=== PATIENT | male | born 1960 | race Caucasian/White ===

== ENCOUNTER 2018-04-06 12:52 | Observation (INO) ==
--- NOTE | 2018-04-06 13:25 | Emergency Department Note ---
Disposition Clinical Impression: Syncope Qualifiers: Syncope type: unspecified Qualified Code(s): R55 - Syncope and collapse Disposition: Admitted As Inpatient Condition: Fair [facility]errals: [facility]Primary Care Provider[facility] - Forms: ED Satisfaction Letter Time of Disposition: 16:28 Altered Mental Status HPI - General Chief Complaint: ED Altered Mental Status Stated Complaint: Passing out Time Seen by Provider: 04/06/18 13:01 Source: patient, EMS Mode of arrival: EMS Limitations: no limitations Nursing Notes Reviewed: Yes Vital Signs Reviewed: Yes - History of Present Illness HPI Narrative: EMS reports that the patient developed confusion and altered mental status earlier. The patient states that he developed a sharp pain in the back of his head was down into his body. This began last p.m. His girlfriend stated that his speech was somewhat slurred's. He also states he has been having some intermittent chest pain since last night. MD complaint: altered mental status Onset (ago): hour(s) (16 hours) Timing confirmed by: caregiver Consistency of Symptoms: waxing and waning Associated symptoms: Reports: headaches - Related Data Home Medications Medication Instructions Recorded Confirmed Diltiazem [Cardizem] 30 mg PO DAILY 01/29/17 04/03/18 Gabapentin [Neurontin] 1,000 mg PO TID 01/29/17 04/03/18 Omeprazole [PriLOSEC] 20 mg PO BIDAC 01/29/17 04/03/18 Aspirin [Adult Aspirin Regimen] 81 mg PO DAILY 04/03/18 04/03/18 Lisinopril [Zestril] 20 mg PO DAILY 04/03/18 04/03/18 Simvastatin [Zocor] 20 mg PO HS 04/03/18 04/03/18 Tamsulosin HCl [Flomax] 0.4 mg PO DAILY 04/03/18 04/03/18 Previous Rx's Medication Instructions Recorded Cyclobenzaprine [Flexeril] 10 mg PO TID #21 tablet 01/29/17 Oxybutynin [Ditropan] 5 mg PO BID 5 Days #10 tablet 04/03/18 Allergies Allergy/AdvReac Type Severity Reaction Status Date / Time No Known Allergies Allergy Verified 03/23/18 10:22 All systems ED: reviewed and negative except as stated. Constitutional: Denies: fever, chills, weakness, weight change Eyes: Denies: eye pain, eye discharge, vision change ENT ED: Denies: ear pain, throat pain, dental pain, hearing loss, epistaxis, congestion, dysphagia Cardiovascular: Reports: chest pain. Denies: palpitations, dyspnea on exertion , edema, syncope Respiratory: Denies: cough, dyspnea, wheezes, hemoptysis, stridor Gastrointestinal: Denies: abdominal pain, nausea, vomiting, diarrhea, constipation, hematemesis, melena, hematochezia Genitourinary: Denies: urgency, dysuria, frequency, hematuria Musculoskeletal: Denies: back pain, neck pain, arthralgia, myalgia Integumentary: Denies: rash, abrasion, lesions Neurological: Reports: headache. Denies: weakness, numbness, paresthesias, confusion, abnormal gait, vertigo Psychiatric: Denies: anxiety, depression, suicidal thoughts, homicidal thoughts , auditory hallucinations, visual hallucinations Endocrine: Denies: fatigue Hematological/Lymphatic: Denies: easy bleeding, easy bruising Allergic/Immunologic: Denies: facial swelling, urticaria Past Medical History - Past Medical History Medical history: Reports: arthritis, diabetes, GERD, hyperlipidemia, hypertension Psychiatric history: Reports: PTSD - Social History Smoking Status: Current every day smoker Smokeless Tobacco Status: No Alcohol use: Reports: none Drug use: Reports: none Physical Exam - General Limitations: no limitations General appearance: alert, in no apparent distress - Head Head exam: atraumatic, normocephalic, normal inspection - Eye Eye exam: Present: normal appearance, PERRL, EOMI - ENT ENT exam: normal exam, normal oropharynx, mucous membranes moist - Neck Neck exam: Present: normal inspection, full ROM, trachea midline - Chest Chest inspection: Present: normal inspection, symmetric chest wall rise - Respiratory Respiratory exam: Present: normal lung sounds bilaterally - Cardiovascular Cardiovascular exam: Present: regular rate, normal rhythm, normal heart sounds - Abdominal Exam Abdominal exam: Present: soft, Non-Tender. Absent: tenderness, distention, guarding, rebound, rigidity - Extremities Exam Extremities exam: Present: normal inspection, full ROM. Absent: tenderness, pedal edema - Expanded Lower Extremity Exam Neurovascular/Tendon exam: Absent: motor deficit, sensory deficit, tendon deficit - Back Exam Back exam: Present: normal inspection, full ROM. Absent: tenderness - Neurological Exam Neurological exam: Present: alert, oriented X3 - Psychiatric Psychiatric exam: Present: normal affect, normal mood - Skin Skin exam: Present: warm, dry, intact, normal color Course - Reevaluation(s) Reevaluation #1: 58-year-old who suffered a syncopal episode prior to arrival. Family states he has been somewhat confused today. CT negative the patient will be admitted for further evaluation and treatment. Time: 16:26 - Consultations Consultation #1: Discussed with , admit. Time: 16:27 Vital Signs Temperature 97.7 F 04/06/18 12:59 Pulse Rate 76 04/06/18 12:59 Respiratory Rate 16 04/06/18 12:59 Blood Pressure 112/69 04/06/18 12:59 O2 Sat by Pulse Oximetry 97 04/06/18 12:59 Temperature 97.7 F 04/06/18 12:59 Pulse Rate 66 04/06/18 16:11 Respiratory Rate 18 04/06/18 16:11 Blood Pressure 114/75 04/06/18 16:11 O2 Sat by Pulse Oximetry 96 04/06/18 16:11 Oxygen Delivery Oxygen Delivery Room Air Altered Mental Status - Lab Data Lab results reviewed: Yes I reviewed the patient's lab results. Result diagrams: 04/06/18 13:42 04/06/18 13:42 Lab Results 04/06/18 04/06/18 04/06/18 Range/Units 13:05 13:42 13:42 WBC 5.2 (4.3-11.1) K/mcL RBC 3.31 L (4.19-5.50) M/mcL Hgb 11.0 L (12.9-16.9) g/dL Hct 32.4 L (37.5-50.1) % MCV 97.9 (83.0-100.0) fL MCH 33.2 (28.0-33.3) pg MCHC 34.0 (31.6-35.5) g/dL RDW 11.9 (11.5-14.5) % Plt Count 175 (140-400) K/mcL MPV 9.7 (9.4-12.4) fL Immature Gran % 0.2 (0-4) % Seg Neutrophils % 45.8 % Lymphocytes % 41.7 % Monocytes % 7.2 % Eosinophils % 4.7 % Basophils % 0.4 % Neutrophils # 2.4 (1.6-8.9) K/mcL Lymphocytes # 2.2 (0.6-4.6) K/mcL Monocytes # 0.4 (0.0-1.3) K/mcL Eosinophils # 0.2 (0.0-0.6) K/mcL Basophils # 0.0 (0.0-0.2) K/mcL PT 12.1 (9.4-12.1) Seconds INR 1.1 APTT 28.9 (26.0-36.0) Seconds Sodium (136-145) mEq/L Potassium (3.5-5.1) mEq/L Chloride (98-107) mEq/L Carbon Dioxide (23-29) mEq/L BUN (6-20) mg/dL Creatinine (0.70-1.30) mg/dL Est GFR ( Amer) (> 60) Est GFR (Non-Af Amer) (> 60) BUN/Creatinine Ratio (6-26) Glucose (70-105) mg/dL POC Glucose 93 (70-99) mg/dL Calculated Osmolality (280-300) Calcium (8.6-10.3) mg/dL Total Bilirubin (0.3-1.0) mg/dL Direct Bilirubin (0.0-0.2) mg/dL Indirect Bilirubin (0.0-1.2) mg/dL AST (13-39) Units/L ALT (7-52) Units/L Alkaline Phosphatase (34-104) Units/L Ammonia (16-53) mcmol/L Troponin I (< 0.04) ng/mL Serum Total Protein (6.4-8.9) g/dL Albumin (3.5-5.7) g/dL Globulin (2.4-3.5) g/dL Albumin/Globulin Ratio (1.1-2.2) Urine Color (Yellow) Urine Clarity (Clear) Urine pH (5.0-8.0) pH Units Ur Specific [place] (1.010-1.025) Urine Protein (Neg-Trace) mg/dL Urine Glucose (UA) (Normal) mg/dL Urine Ketones (Negative) mg/dL Urine Blood (Negative) Urine Nitrite (Negative) Urine Bilirubin (Negative) Urine Urobilinogen (Normal) mg/dL Ur Leukocyte Esterase (Negative) Ur Culture Indicated? (NO) Urine Opiates Screen (Bokymi=889) ng/mL Ur Barbiturates Screen (Eferzz=880) ng/mL Ur Phencyclidine Scrn (Cutoff=25) ng/mL Ur Amphetamines Screen (Ebwksx=5002) ng/mL U Benzodiazepines Scrn (Grmumt=015) ng/mL Urine Cocaine Screen (Cutoff= 300) ng/mL U Marijuana (THC) Screen (Cutoff = 50) ng/mL Ethyl Alcohol (Less than 10) mg/dL Specimen Rejected 04/06/18 04/06/18 04/06/18 Range/Units 13:42 13:42 14:24 WBC (4.3-11.1) K/mcL RBC (4.19-5.50) M/mcL Hgb (12.9-16.9) g/dL Hct (37.5-50.1) % MCV (83.0-100.0) fL MCH (28.0-33.3) pg MCHC (31.6-35.5) g/dL RDW (11.5-14.5) % Plt Count (140-400) K/mcL MPV (9.4-12.4) fL Immature Gran % (0-4) % Seg Neutrophils % % Lymphocytes % % Monocytes % % Eosinophils % % Basophils % % Neutrophils # (1.6-8.9) K/mcL Lymphocytes # (0.6-4.6) K/mcL Monocytes # (0.0-1.3) K/mcL Eosinophils # (0.0-0.6) K/mcL Basophils # (0.0-0.2) K/mcL PT (9.4-12.1) Seconds INR APTT (26.0-36.0) Seconds Sodium 137 (136-145) mEq/L Potassium 4.4 (3.5-5.1) mEq/L Chloride 109 H (98-107) mEq/L Carbon Dioxide 24 (23-29) mEq/L BUN 26 H (6-20) mg/dL Creatinine 1.38 H (0.70-1.30) mg/dL Est GFR ( Amer) > 60 (> 60) Est GFR (Non-Af Amer) 53 L (> 60) BUN/Creatinine Ratio 19 (6-26) Glucose 92 (70-105) mg/dL POC Glucose (70-99) mg/dL Calculated Osmolality 288 (280-300) Calcium 8.9 (8.6-10.3) mg/dL Total Bilirubin 0.3 (0.3-1.0) mg/dL Direct Bilirubin 0.0 (0.0-0.2) mg/dL Indirect Bilirubin 0.3 (0.0-1.2) mg/dL AST 18 (13-39) Units/L ALT 19 (7-52) Units/L Alkaline Phosphatase 57 (34-104) Units/L Ammonia 32 (16-53) mcmol/L Troponin I < 0.03 (< 0.04) ng/mL Serum Total Protein 5.6 L (6.4-8.9) g/dL Albumin 3.7 (3.5-5.7) g/dL Globulin 1.9 L (2.4-3.5) g/dL Albumin/Globulin Ratio 1.9 (1.1-2.2) Urine Color (Yellow) Urine Clarity (Clear) Urine pH (5.0-8.0) pH Units Ur Specific [place] (1.010-1.025) Urine Protein (Neg-Trace) mg/dL Urine Glucose (UA) (Normal) mg/dL Urine Ketones (Negative) mg/dL Urine Blood (Negative) Urine Nitrite (Negative) Urine Bilirubin (Negative) Urine Urobilinogen (Normal) mg/dL Ur Leukocyte Esterase (Negative) Ur Culture Indicated? (NO) Urine Opiates Screen ([place]=298) ng/mL Ur Barbiturates Screen (Mhnuug=775) ng/mL Ur Phencyclidine Scrn (Cutoff=25) ng/mL Ur Amphetamines Screen (Tmaejh=0969) ng/mL U Benzodiazepines Scrn (Daanrl=086) ng/mL Urine Cocaine Screen (Cutoff= 300) ng/mL U Marijuana (THC) Screen (Cutoff = 50) ng/mL Ethyl Alcohol < 10 (Less than 10) mg/dL Specimen Rejected Hemolyzed 04/06/18 04/06/18 Range/Units 14:45 14:45 WBC (4.3-11.1) K/mcL RBC (4.19-5.50) M/mcL Hgb (12.9-16.9) g/dL Hct (37.5-50.1) % MCV (83.0-100.0) fL MCH (28.0-33.3) pg MCHC (31.6-35.5) g/dL RDW (11.5-14.5) % Plt Count (140-400) K/mcL MPV (9.4-12.4) fL Immature Gran % (0-4) % Seg Neutrophils % % Lymphocytes % % Monocytes % % Eosinophils % % Basophils % % Neutrophils # (1.6-8.9) K/mcL Lymphocytes # (0.6-4.6) K/mcL Monocytes # (0.0-1.3) K/mcL Eosinophils # (0.0-0.6) K/mcL Basophils # (0.0-0.2) K/mcL PT (9.4-12.1) Seconds INR APTT (26.0-36.0) Seconds Sodium (136-145) mEq/L Potassium (3.5-5.1) mEq/L Chloride (98-107) mEq/L Carbon Dioxide (23-29) mEq/L BUN (6-20) mg/dL Creatinine (0.70-1.30) mg/dL Est GFR ( Amer) (> 60) Est GFR (Non-Af Amer) (> 60) BUN/Creatinine Ratio (6-26) Glucose (70-105) mg/dL POC Glucose (70-99) mg/dL Calculated Osmolality (280-300) Calcium (8.6-10.3) mg/dL Total Bilirubin (0.3-1.0) mg/dL Direct Bilirubin (0.0-0.2) mg/dL Indirect Bilirubin (0.0-1.2) mg/dL AST (13-39) Units/L ALT (7-52) Units/L Alkaline Phosphatase (34-104) Units/L Ammonia (16-53) mcmol/L Troponin I (< 0.04) ng/mL Serum Total Protein (6.4-8.9) g/dL Albumin (3.5-5.7) g/dL Globulin (2.4-3.5) g/dL Albumin/Globulin Ratio (1.1-2.2) Urine Color Yellow (Yellow) Urine Clarity Clear (Clear) Urine pH 6.5 (5.0-8.0) pH Units Ur Specific [place] 1.018 (1.010-1.025) Urine Protein Negative (Neg-Trace) mg/dL Urine Glucose (UA) Normal (Normal) mg/dL Urine Ketones Negative (Negative) mg/dL Urine Blood Negative (Negative) Urine Nitrite Negative (Negative) Urine Bilirubin Negative (Negative) Urine Urobilinogen Normal (Normal) mg/dL Ur Leukocyte Esterase Negative (Negative) Ur Culture Indicated? NO (NO) Urine Opiates Screen Negative (Umhyuc=133) ng/mL Ur Barbiturates Screen Negative (Xzwvfd=451) ng/mL Ur Phencyclidine Scrn Negative (Cutoff=25) ng/mL Ur Amphetamines Screen Negative (Eicgtp=5716) ng/mL U Benzodiazepines Scrn Negative (Dcpvrs=022) ng/mL Urine Cocaine Screen Negative (Cutoff= 300) ng/mL U Marijuana (THC) Screen Negative (Cutoff = 50) ng/mL Ethyl Alcohol (Less than 10) mg/dL Specimen Rejected - EKG Data EKG attestation: Yes I reviewed and interpreted this EKG. EKG shows normal: sinus rhythm Rate: normal Rhythm: NSR [place]/QRS: normal Interpretation: no acute changes TPA Checklist - Source Information Source: Patient - Eligibilty for IV tPA 1. LKW equal to or less than 4.5 hours be before treatment: No - LKW: 3-4.5 hrs Add. Warnings/Precautions Patient/family understanding: The patient/family members have been counseled and understood the risk, benefit , and alternatives of treatment. NIH Stroke Scale - Level of Consciousness LOC: Alert - LOC Questions LOC Questions: Answers both correctly - LOC Commands LOC Commands: Performs both correctly - Best Gaze Best Gaze: Normal - Visual Visual: No visual loss - Facial Palsy Facial Palsy: Normal - Motor Arms Motor Arm-Left: No drift for 10 seconds Motor Arm-Right: No drift for 10 seconds - Motor Legs Motor Leg-Left: No drift for 5 seconds Motor Leg-Right: No drift for 5 seconds - Limb Ataxia Limb Ataxia: Normal, No Ataxia - Sensory Sensory: Normal - Best Language Best Language: No aphasia - Dysarthria Dysarthria: Mild, slurs some words - Extinction and Inattention Extinction and Inattention: Normal - NIHSS Total Score NIHSS Total Score: 1
[2018-04-06 13:54] LABS: Basophils % 0.4 %; Eosinophils # 0.2 K/mcL (0.0-0.6); Eosinophils % 4.7 %; Hematocrit 32.4 % (37.5-50.1); Immature Granulocytes % 0.2 % (0-4); Lymphocytes # 2.2 K/mcL (0.6-4.6); Lymphocytes % 41.7 %; Mean Corpuscular Hemoglobin 33.2 pg (28.0-33.3); Mean Corpuscular Volume 97.9 fL (83.0-100.0); Mean Platelet Volume 9.7 fL (9.4-12.4); Monocytes # 0.4 K/mcL (0.0-1.3); Monocytes % 7.2 %; Neutrophils # 2.4 K/mcL (1.6-8.9); Platelet Count 175 K/mcL (140-400); Red Blood Count 3.31 M/mcL (4.19-5.50); Red Cell Distribution Width 11.9 % (11.5-14.5); Segmented Neutrophils % 45.8 %
[2018-04-06 14:01] LABS: INR 1.1; Prothrombin Time 12.1 Seconds (9.4-12.1)
[2018-04-06 14:03] LABS: Activated Partial Thrombo Time 28.9 Seconds (26.0-36.0)
[2018-04-06 14:38] LABS: Troponin I < 0.03 ng/mL (< 0.04)
[2018-04-06 14:40] LABS: Alanine Aminotransferase 19 Units/L (7-52); Albumin 3.7 g/dL (3.5-5.7); Albumin/Globulin Ratio 1.9 (1.1-2.2); Alkaline Phosphatase 57 Units/L (34-104); Aspartate Amino Transferase 18 Units/L (13-39); BUN/Creatinine Ratio 19 (6-26); Bilirubin,Indirect 0.3 mg/dL (0.0-1.2); Bilirubin,Total 0.3 mg/dL (0.3-1.0); Blood Urea Nitrogen 26 mg/dL (6-20); Calcium 8.9 mg/dL (8.6-10.3); Carbon Dioxide 24 mEq/L (23-29); Chloride 109 mEq/L (98-107); Ethanol < 10 mg/dL (Less than 10); Globulin 1.9 g/dL (2.4-3.5); Glucose 92 mg/dL (70-105); Osmolality,Calculated 288 (280-300); Potassium 4.4 mEq/L (3.5-5.1); Sodium 137 mEq/L (136-145); Total Protein 5.6 g/dL (6.4-8.9); eGFR For African Americans > 60 (> 60); eGFR For Non-African Americans 53 (> 60)
[2018-04-06 14:54] LABS: Bilirubin,Urine Negative (Negative); Blood,Urine Negative (Negative); Clarity,Urine Clear (Clear); Color,Urine Yellow (Yellow); Glucose,Urine (UA) Normal (Normal); Ketones,Urine Negative (Negative); Leukocyte Esterase,Urine Negative (Negative); Nitrite,Urine Negative (Negative); PH,Urine 6.5 pH Units (5.0-8.0); Protein,Urine Negative (Neg-Trace); Specific Gravity,Urine 1.018 (1.010-1.025); Urobilinogen,Urine Normal (Normal)
[2018-04-06 15:11] LABS: Amphetamine Screen,Urine Negative ng/mL (Cutoff=1000); Barbiturate Screen,Urine Negative ng/mL (Cutoff=200); Benzodiazepines Screen,Urine Negative ng/mL (Cutoff=200); Cannabinoid Screen,Urine Negative ng/mL (Cutoff = 50); Cocaine Screen,Urine Negative ng/mL (Cutoff= 300); Opiate Screen,Urine Negative ng/mL (Cutoff=300); Phencyclidine Screen,Urine Negative ng/mL (Cutoff=25)
--- NOTE | 2018-04-06 17:00 | Internal Med History&Physical ---
Date of Encounter: 04/06/18 Time of Encounter: 16:57 Internal Medicine - H&P: HPI Chief complaint: mental status changes Admitted From: Emergency Dept Plans for Post Hospital Care: Home History of present illness: Mr. Pitts is a 58 year old male Patient with history of low back pain, diabetes, GERD, high cholesterol, hypertension and PTSD patient presented emergency room due to confusion some mental status changes slurred patient also has some sharp pain in the back of his head/neck and going through to both side of the body and down to to his legs. Also has intermittent chest pain emergency room head CT was done unremarkable labs unremarkable except for creatinine 1.38 patient will be admitted I will consult neurology for further evaluation and started on IV hydration. Past Med Surg Social Fam HX - Past Medical History Medical history: arthritis, diabetes, GERD, hyperlipidemia, hypertension Psychiatric history: PTSD - Past Surgical History Additional surgical history: FATEMEH KNEE REPLACEMENTS - Social History Smoking Status: Current every day smoker Smokeless Tobacco Status: No Alcohol use: none Drug use: none Internal Medicine - H&P: Meds Aspirin [Adult Aspirin Regimen] 81 mg PO DAILY 04/03/18 [History] Tamsulosin HCl [Flomax] 0.4 mg PO DAILY 04/03/18 [History] Amitriptyline HCl [Amitriptyline HCl] 100 mg PO HS 04/06/18 [History] Atorvastatin [Lipitor] 40 mg PO HS 04/06/18 [History] BuPROPion XL (24 HR) [Wellbutrin XL] 150 mg PO DAILY 04/06/18 [History] Bupropion HCl [Wellbutrin Xl] 300 mg PO DAILY 04/06/18 [History] Diltiazem CD (24hr) [Cardizem CD] 120 mg PO DAILY 04/06/18 [History] Gabapentin [Neurontin] 1,200 mg PO TID 04/06/18 [History] Lisinopril [Zestril] 2.5 mg PO DAILY 04/06/18 [History] Meloxicam [Mobic] 15 mg PO DAILY 04/06/18 [History] Metoprolol Succinate [Toprol Xl] 25 mg PO DAILY 04/06/18 [History] Midodrine [ProAmatine] 10 mg PO TID 04/06/18 [History] Omeprazole [PriLOSEC] 40 mg PO DAILY 04/06/18 [History] SUMAtriptan succinate [Imitrex] 50 mg PO DAILY PRN 04/06/18 [History] Topiramate [Topamax] 100 mg PO BID 04/06/18 [History] Trazodone HCl 100 mg PO HS PRN 04/06/18 [History] 3 Allergy/AdvReac Type Severity Reaction Status Date / Time No Known Allergies Allergy Verified 04/06/18 17:04 All Systems PM: A 10-system review of systems was performed and is negative for pertinent findings except as documented above in the HPI. - Constitutional Constitutional: no chills, no fever(s), no night sweats - EENT Eyes: no change in vision, no discharge, no pain, no photophobia Ears: no ear discharge, no ear pain, no tinnitus Nose, mouth and throat: no dysphagia, no nasal discharge, no neck pain, no sore throat - Cardiovascular Cardiovascular ROS IM: chest pain - Respiratory Respiratory: no cough, no dyspnea, no wheezing, no excessive phlegm production - Gastrointestinal Gastrointestinal: no abdominal pain, no diarrhea, no hematemesis, no hematochezia, no melena, no nausea, no vomiting - Musculoskeletal Musculoskeletal ROS IM: back pain, neck pain - Integumentary Integumentary IM: no rash, no unusual bruising - Neurological Neurological ROS: confusion - Constitutional Vitals: Temp Pulse Resp BP Pulse Ox 97.7 F 66 18 114/75 96 04/06/18 12:59 04/06/18 16:11 04/06/18 16:11 04/06/18 16:11 04/06/18 16:11 Internal Med - H&P Results - Labs CBC & Chem 7: 04/06/18 13:42 04/06/18 13:42 Labs: Short CBC 04/06/18 Range/Units 13:42 WBC 5.2 (4.3-11.1) K/mcL Hgb 11.0 L (12.9-16.9) g/dL Hct 32.4 L (37.5-50.1) % Plt Count 175 (140-400) K/mcL Neutrophils # 2.4 (1.6-8.9) K/mcL BMP 04/06/18 13:42 Sodium 137 Potassium 4.4 Chloride 109 H Carbon Dioxide 24 BUN 26 H Creatinine 1.38 H Glucose 92 Calcium 8.9 Cardiac Enzymes 04/06/18 Range/Units 13:42 Troponin I < 0.03 (< 0.04) ng/mL Liver Function 04/06/18 Range/Units 13:42 Total Bilirubin 0.3 (0.3-1.0) mg/dL Direct Bilirubin 0.0 (0.0-0.2) mg/dL AST 18 (13-39) Units/L ALT 19 (7-52) Units/L Alkaline Phosphatase 57 (34-104) Units/L Albumin 3.7 (3.5-5.7) g/dL Urine 04/06/18 Range/Units 14:45 Urine Color Yellow (Yellow) Urine Clarity Clear (Clear) Urine pH 6.5 (5.0-8.0) pH Units Ur Specific [place] 1.018 (1.010-1.025) Urine Protein Negative (Neg-Trace) mg/dL Urine Glucose (UA) Normal (Normal) mg/dL - Impressions ITS Impressions Chest X-Ray 04/06/18 13:18 IMPRESSION: No acute pulmonary finding. D/ / Enrique Giordano MD / Enrique Giordano MD Interpreting Provider: Enrique Giordano MD Head CT 04/06/18 13:19 IMPRESSION: No acute intracranial abnormality. D/ / Eric Diaz MD / Eric Diaz MD Interpreting Provider: Eric Diaz MD - Assessment and plan (1) Mental status change Current Visit: Yes Status: Acute Assessment and plan: Mental status changes of some slow speech and confusion will consult neurology for further evaluation Qualifiers: Altered mental status type: delirium Qualified Code(s): R41.0 - Disorientation, unspecified (2) Chest pain Current Visit: Yes Status: Acute Assessment and plan: Chest pain patient appeared to likely has cervical/ thoracic radiculopathy but given his age and risk factor will scheduled for nuclear stress test in a.m. Qualifiers: Chest pain type: intercostal pain Qualified Code(s): R07.82 - Intercostal pain (3) Diabetes 1.5, managed as type 2 Current Visit: Yes Status: Chronic Assessment and plan: Resume home medication and place on sliding scale (4) Neck pain Current Visit: Yes Status: Acute Assessment and plan: Patient described neck pain going down to his legs suggestive of likely cervical radiculopathy or upper thoracic radiculopathy. will consult neurology patient does has some chronic back pain and has some injection in the past we will consider MRI of the cervical and thoracic spine (5) HTN (hypertension) Current Visit: Yes Status: Chronic Assessment and plan: Well-controlled Qualifiers: Hypertension type: essential hypertension Qualified Code(s): I10 - Essential (primary) hypertension (6) Hyperlipidemia Current Visit: Yes Status: Chronic Qualifiers: Hyperlipidemia type: pure hypercholesterolemia Qualified Code(s): E78.00 - Pure hypercholesterolemia, unspecified; E78.0 - Pure hypercholesterolemia - Time Spent With Patient Total time spent is greater than 50% in coordination of care (as documented) at patient's floor/unit and/or counseling patient:
[2018-04-06] MEDS ORDERED: traMADol 50 MG TABLET PO PRN (17:07)
[2018-04-06] MEDS ORDERED: Acetaminophen 325 MG TABLET PO PRN (17:07)
[2018-04-06] MEDS ORDERED: Naloxone 0.4 MG/ML INJ IVP PRN (17:07)
[2018-04-06] MEDS ORDERED: traZODone 50 MG TABLET PO PRN (17:10)
[2018-04-06] MEDS ORDERED: SUMAtriptan succinate 50 MG TABLET PO PRN (17:10)
[2018-04-06] MEDS ORDERED: *HR* Dextrose 50 % in Water (Syg) 50 ML SYRINGE IVP PRN (17:11)
[2018-04-06] MEDS ORDERED: D5% in Water 1,000 ML IVC PRN (17:11)
[2018-04-06] MEDS ORDERED: Dextrose Gel 15 GM/37.5 ML TUBE PO PRN ×2 (17:11)
[2018-04-06] MEDS ORDERED: 0.9 % Sodium Chloride 1,000 ML IVC SCH (17:15)
[2018-04-06] MEDS ORDERED: Insulin LISPRO 300 UNITS/3 ML VIAL SQ SCH (21:00)
[2018-04-06] MEDS: Topiramate 100 MG TABLET PO SCH (22:10)
[2018-04-06] MEDS: Gabapentin 400 MG CAPSULE PO SCH (22:10)
[2018-04-07 05:27] LABS: Hematocrit 32.2 % (37.5-50.1); Hemoglobin 11.3 g/dL (12.9-16.9); Mean Corpuscular HGB Conc 35.1 g/dL (31.6-35.5); Mean Corpuscular Volume 99.7 fL (83.0-100.0); Mean Platelet Volume 9.8 fL (9.4-12.4); Platelet Count 175 K/mcL (140-400); Red Blood Count 3.23 M/mcL (4.19-5.50)
[2018-04-07 05:51] LABS: Alanine Aminotransferase 25 Units/L (7-52); Albumin 3.4 g/dL (3.5-5.7); Albumin/Globulin Ratio 2.1 (1.1-2.2); Alkaline Phosphatase 52 Units/L (34-104); Aspartate Amino Transferase 21 Units/L (13-39); BUN/Creatinine Ratio 16 (6-26); Bilirubin,Total 0.2 mg/dL (0.3-1.0); Blood Urea Nitrogen 20 mg/dL (6-20); Carbon Dioxide 24 mEq/L (23-29); Chloride 115 mEq/L (98-107); Chol/HDL Ratio 3.6 (0-4.9); Cholesterol 119 mg/dL (< 200); Globulin 1.6 g/dL (2.4-3.5); Glucose 104 mg/dL (70-105); HDL Cholesterol 33 mg/dL (40-59); LDL Cholesterol,Calculated 48 mg/dL (0-99); Magnesium 2.2 mg/dL (1.6-2.6); Osmolality,Calculated 297 (280-300); Potassium 4.8 mEq/L (3.5-5.1); Sodium 142 mEq/L (136-145); Triglycerides 192 mg/dL (< 150); eGFR For African Americans > 60 (> 60); eGFR For Non-African Americans 58 (> 60)
[2018-04-07] MEDS ORDERED: Regadenoson 0.4 MG/5 ML SYRINGE IVP ONE (05:59)
[2018-04-07] MEDS ORDERED: Diltiazem CD (24hr) 120 MG CAPSULE PO SCH (09:00)
[2018-04-07] MEDS ORDERED: Metoprolol XL (24 HR) Succ 25 MG TAB.ER.24H PO SCH (09:00)
[2018-04-07] MEDS ORDERED: BuPROPion XL (24 HR) 150 MG TABLET PO SCH ×2 (09:00)
[2018-04-07] MEDS ORDERED: Aspirin Enteric Coated 81 MG Tablet PO SCH (09:00)
[2018-04-07] MEDS: Gabapentin 400 MG CAPSULE PO SCH (09:08)
[2018-04-07] MEDS: Insulin LISPRO 300 UNITS/3 ML VIAL SQ SCH ×2 (09:09→12:30)
[2018-04-07] MEDS: Topiramate 100 MG TABLET PO SCH (09:10)
[2018-04-07 12:23] VITALS: BP 108/71
--- NOTE | 2018-04-07 13:33 | Discharge Summary ---
- NOTES TO OUTPATIENT PROVIDER Notes to Outpatient Provider: Recommended to follow-up with Neurology. Recommended to follow-up with Cardiology. Patient has left AMA. Date of Encounter: 04/07/18 Time of Encounter: 13:28 - Discharge Diagnosis (1) Mental status change Priority: Primary Status: Acute Qualifiers: Altered mental status type: delirium Qualified Code(s): R41.0 - Disorientation, unspecified (2) Left against medical advice Priority: Secondary Status: Acute (3) Chest pain Priority: Secondary Status: Acute Qualifiers: Chest pain type: intercostal pain Qualified Code(s): R07.82 - Intercostal pain (4) Neck pain Priority: Secondary Status: Acute (5) Diabetes 1.5, managed as type 2 Priority: Secondary Status: Chronic (6) HTN (hypertension) Priority: Secondary Status: Chronic Qualifiers: Hypertension type: essential hypertension Qualified Code(s): I10 - Essential (primary) hypertension (7) Hyperlipidemia Priority: Secondary Status: Chronic Qualifiers: Hyperlipidemia type: pure hypercholesterolemia Qualified Code(s): E78.00 - Pure hypercholesterolemia, unspecified; E78.0 - Pure hypercholesterolemia Hospital course: Mr. Pitts is a 58 year old male Patient with history of low back pain, diabetes, GERD, high cholesterol, hypertension and PTSD patient presented emergency room due to confusion some mental status changes slurred speech. patient also has some sharp pain in the back of his head/neck and going through to both side of the body and down to to his legs. Also has intermittent chest pain emergency room head CT was done unremarkable labs unremarkable except for creatinine 1.38 patient will be admitted Neurology was consulted. Patient had stress test ordered that showed mild intensity fixed perfusion defect in inferior wall and apical inferior wall perfusion worsening during stress and couldn't exclude ischemia. Patient had showed agitation because he wanted to leave and did not want any further workup. Patient did exhibit decision making capacity. He did not want further cardiac workup or consultation. Patient desired to leave before he could be evaluated by Neurology. He was explained risks and benefits of this. Security did need called because he tried to leave with IV site in and also displayed aggressive behavior towards me and staff. Security had to be present during discussion with patient and with IV removal. Patient prognosis is guarded without further workup. - Time Spent with Patient Total time spent providing and/or coordinating discharge services: - Discharge Medications Home Medications: Aspirin [Adult Aspirin Regimen] 81 mg PO DAILY 04/03/18 [History] Tamsulosin HCl [Flomax] 0.4 mg PO DAILY 04/03/18 [History] Amitriptyline HCl 100 mg PO HS 04/06/18 [History] Atorvastatin [Lipitor] 40 mg PO HS 04/06/18 [History] BuPROPion XL (24 HR) [Wellbutrin Xl] 150 mg PO DAILY 04/06/18 [History] Bupropion HCl [Wellbutrin Xl] 300 mg PO DAILY 04/06/18 [History] Diltiazem CD (24hr) [Cardizem CD] 120 mg PO DAILY 04/06/18 [History] Gabapentin [Neurontin] 1,200 mg PO TID 04/06/18 [History] Lisinopril [Zestril] 2.5 mg PO DAILY 04/06/18 [History] Meloxicam [Mobic] 15 mg PO DAILY 04/06/18 [History] Metoprolol Succinate [Toprol Xl] 25 mg PO DAILY 04/06/18 [History] Midodrine [ProAmatine] 10 mg PO TID 04/06/18 [History] Omeprazole [PriLOSEC] 40 mg PO DAILY 04/06/18 [History] SUMAtriptan succinate [Imitrex] 50 mg PO DAILY PRN 04/06/18 [History] Topiramate [Topamax] 100 mg PO BID 04/06/18 [History] Trazodone HCl 100 mg PO HS PRN 04/06/18 [History] Allergies/Adverse Reactions: 3 Allergy/AdvReac Type Severity Reaction Status Date / Time No Known Allergies Allergy Verified 04/06/18 17:04 Date of admission: 04/06/18 18:07 [facility] care physician: [facility] Consults: 04/06/18 20:25 Consult to Nutrition [CONS] Routine Comment: Consulting Provider: NUTRITION Reason for Dietary Consult: MST Score Discharging clinician: Glen Flynn - Constitutional Vitals: Temp Pulse Resp BP Pulse Ox 97.8 F 65 16 108/71 99 04/07/18 12:22 04/07/18 12:22 04/07/18 12:22 04/07/18 12:22 04/07/18 12:22 Exam: Gen: agitated, AAOx3 remained of exam is limited to patient attempting to leave and non-cooperative. He is exhibited with normal gait and normal speech. - Patient Status Disposition: Left Against Medical Advice Condition: Undetermined Functional capacity at discharge: independent ambulation Overall status at discharge: other (Unsure since patient is leaving without further workup and establishing baseline.) - Discharge Instructions Follow Up With: [facility] [Primary Care Provider] - - Diet and Activity Activity: other (See primary care physician [place] for recommendations) Diet: advance to your usual diet
--- NOTE | 2018-04-07 16:58 | Electrocardiograph Report ---
[address] [place], [place] [address] Test Date: 2018-04-06 Pat Name: Trey Pitts Department: 104 Room: [facility] Gender: M Front Office Medical Assistant: KOLBY : 1960 Requested By: Brown Massey Order Number: [id number] Reading MD: Robbie Messina Measurements Intervals [place] Rate: 70 P: 64 SC: 267 QRS: 50 QRSD: 109 T: 44 QT: 373 QTc: 394 Interpretive Statements SINUS RHYTHM WITH FIRST DEGREE AV BLOCK early repolarization Electronically Signed On 04-07-2018 16:56:54 EDT by Robbie Messina
== END 2018-04-07 13:37 | disposition left against medical advice (07) ==
LOC: 3NENU 12:52 → EMEROO 12:52 → 3NENU 19:50
PROVIDERS: ADMIT Internal Medicine Cardiovascular Disease; ATTEND Internal Medicine Cardiovascular Disease